=== PATIENT | male | born 1975 | race Caucasian/White ===

== ENCOUNTER 2018-03-08 11:42 | Emergency (ER) | payer OTHER ==
[2018-03-08] MEDS: ONDANSETRON 4 MG INJ IV (13:11)
[2018-03-08] MEDS: HYDROmorphONE 1 MG/ML SYG IV (13:11)
[2018-03-08] MEDS: SOD CHLORIDE 0.9% 1,000 ML IV (13:11)
[2018-03-08 13:20] LABS: ADD MAN DIFF? NO
[2018-03-08 13:23] LABS: BASOPHILS % 0.2 % (0.0-2.0); EOSINOPHILS # 0.3 10^3/ul (0.0-0.5); EOSINOPHILS % 2.7 % (0.0-7.0); HEMATOCRIT 34.9 % (42.0-52.0); HEMOGLOBIN 10.3 g/dl (14.0-18.0); LYMPHOCYTES # 2.4 10^3/ul (0.8-2.9); LYMPHOCYTES % 23.1 % (15.0-51.0); MEAN CORPUSCULAR HEMOGLOBIN 19.3 pg (29.0-33.0); MEAN CORPUSCULAR HGB CONC 29.5 g/dl (32.0-37.0); MEAN CORPUSCULAR VOLUME 65.4 fl (82.0-101.0); MEAN PLATELET VOLUME 9.1 fl (7.4-10.4); MONOCYTE # 0.6 10^3/ul (0.3-0.9); MONOCYTES % 5.9 % (0.0-11.0); NEUTROPHILS % 67.8 % (39.0-77.0); PLATELET COUNT 423 10^3/UL (140-415); RED BLOOD COUNT 5.34 10^6/ul (4.70-6.10); RED CELL DISTRIBUTION WIDTH 21.2 % (11.5-14.5)
[2018-03-08 13:23] LABS: WHITE BLOOD COUNT 10.4 10^3/ul (4.8-10.8)
[2018-03-08 13:27] LABS: ADD UMIC YES; UR ASCORBIC ACID NEGATIVE (NEGATIVE); UR BACTERIA FEW /HPF (NONE SEEN); UR BILIRUBIN (Dip) NEGATIVE (NEGATIVE); UR BLOOD (Dip) NEGATIVE (NEGATIVE); UR CLARITY CLOUDY (CLEAR); UR COLOR YELLOW (YELLOW); UR GLUCOSE (Dip) NEGATIVE (NEGATIVE); UR KETONES (Dip) NEGATIVE (NEGATIVE); UR LEUKOCYTE ESTERASE (Dip) 3+ Leu/ul (NEGATIVE); UR NITRITE (Dip) NEGATIVE (NEGATIVE); UR RBC 9 /HPF (0-5); UR SPECIFIC GRAVITY (Dip) 1.014 (1.003-1.030); UR TOTAL PROTEIN (Dip) NEGATIVE (NEGATIVE); UR UROBILINOGEN (Dip) NEGATIVE (NEGATIVE); UR WBC > 182 /HPF (0-5)
[2018-03-08 13:56] LABS: ANION GAP 16 (8-16); BLOOD UREA NITROGEN 11 mg/dl (7-20); CALCIUM 9.2 mg/dl (8.4-10.2); CARBON DIOXIDE 26 mmol/L (21-31); CHLORIDE 100 mmol/L (97-110); CREATININE 0.77 mg/dl (0.61-1.24); GLUCOSE 149 mg/dl (70-220); POTASSIUM 3.8 mmol/L (3.5-5.1); SODIUM 138 mmol/L (135-144)
[2018-03-08] MEDS: SOD CHLORIDE 0.9% 100 ML (14:53)
[2018-03-08] MEDS: IOHEXOL 300MG/ML 150 ML BTL (14:53)
[2018-03-08] MEDS: CEFTRIAXONE 1 GM/50 ML (PMX) 50 ML IVPB (16:27)
== END 2018-03-08 17:18 | disposition home or self-care (01) ==
LOC: E/R 11:42
DX: N12 Tubulo-interstitial nephritis, not specified as acute or chronic (principal)
CPT/HCPCS: 36415; 74177; 80048; 81001; 82962; 85025; 96374; 96375; 99285-25

== ENCOUNTER 2018-07-18 09:54 | Inpatient (IN) | payer OTHER ==
[2018-07-18] MEDS: HYDROmorphONE 1 MG/ML SYG IV (10:52)
[2018-07-18 10:53] LABS: ADD MAN DIFF? NO
[2018-07-18 10:55] LABS: BASOPHILS % 0.1 % (0.0-2.0); EOSINOPHILS # 0.3 10^3/ul (0.0-0.5); EOSINOPHILS % 2.6 % (0.0-7.0); HEMATOCRIT 41.9 % (42.0-52.0); HEMOGLOBIN 12.7 g/dl (14.0-18.0); LYMPHOCYTES % 9.1 % (15.0-51.0); MEAN CORPUSCULAR HEMOGLOBIN 20.6 pg (29.0-33.0); MEAN CORPUSCULAR HGB CONC 30.3 g/dl (32.0-37.0); MEAN CORPUSCULAR VOLUME 67.8 fl (82.0-101.0); MONOCYTE # 0.4 10^3/ul (0.3-0.9); MONOCYTES % 4.1 % (0.0-11.0); NEUTROPHIL # 8.9 10^3/ul (1.6-7.5); NEUTROPHILS % 83.4 % (39.0-77.0); PLATELET COUNT 314 10^3/UL (140-415); RED BLOOD COUNT 6.18 10^6/ul (4.70-6.10); RED CELL DISTRIBUTION WIDTH 19.9 % (11.5-14.5)
[2018-07-18 10:55] LABS: WHITE BLOOD COUNT 10.7 10^3/ul (4.8-10.8)
[2018-07-18] MEDS: ALBUTEROL 0.5% (NEB) 2.5 MG/0.5 ML AMP INH (10:56)
[2018-07-18] MEDS: IPRATROPIUM (NEB) 0.5 MG/2.5 ML AMP INH (10:56)
[2018-07-18 11:11] LABS: ALANINE AMINOTRANSFERASE 44 IU/L (13-69); ALBUMIN 3.8 g/dl (3.3-4.9); ALBUMIN/GLOBULIN RATIO 0.84; ALKALINE PHOSPHATASE 188 IU/L (42-121); ANION GAP 8 (5-13); ASPARTATE AMINO TRANSFERASE 57 IU/L (15-46); BILIRUBIN,INDIRECT 0.4 mg/dl (0-1.1); BILIRUBIN,TOTAL 0.4 mg/dl (0.2-1.3); BLOOD UREA NITROGEN 18 mg/dl (7-20); CALCIUM 8.6 mg/dl (8.4-10.2); CARBON DIOXIDE 28 mmol/L (21-31); CHLORIDE 103 mmol/L (97-110); CREATININE 0.58 mg/dl (0.61-1.24); Estimated GFR > 60 mL/min (>60); GLUCOSE 127 mg/dl (70-220); POTASSIUM 4.5 mmol/L (3.5-5.1); SODIUM 139 mmol/L (135-144); TOTAL PROTEIN 8.3 g/dl (6.1-8.1)
[2018-07-18 11:20] LABS: AADO2 Arterial 124.7 mmHg (7.0-24.0); Allen Test ACCEPTAB; Arterial Base Excess 3.5 mmol/L (-3.0-3); Arterial Blood Gas Oxygen Sat 92.7 mmHG (95.0-98.0); Arterial COHb 1.2 % (0.0-3.0); Arterial Fraction of Oxyhgb 91.4 % (93.0-99.0); Arterial HCO3 27.7 mmol/L (22.0-26.0); Arterial MetHb 0.2 % (0.0-1.5); Arterial pCO2 40.6 mmhg (35-45); MODE NASAL CANNULA; Site Right Radial
[2018-07-18 11:23] LABS: B-TYPE NATRIURETIC PEPTIDE 513 PG/ML (0-125); TROPONIN-I < 0.012 ng/ml (0.000-0.120)
[2018-07-18] MEDS: FENTAnyl 50 MCG/ML VIAL IV (12:19)
[2018-07-18] MEDS ORDERED: ONDANSETRON 4 MG INJ IV ×2 (13:00→19:00)
[2018-07-18] MEDS ORDERED: ACETAMINOPHEN 325 MG TAB PO ×2 (13:00→19:00)
[2018-07-18] MEDS: METHYLPREDNISOLONE 125 MG INJ IV (13:05)
[2018-07-18] MEDS: traMADol 50 MG TAB PO (17:57)
[2018-07-18 18:16] LABS: CREATINE KINASE 169 IU/L (23-200)
[2018-07-18 18:31] LABS: CK INDEX 1.2; CK-MB 2.02 ng/ml (0.0-2.4); TROPONIN-I < 0.012 ng/ml (0.000-0.120)
[2018-07-18] MEDS ORDERED: ALBUTEROL/IPRATROPIUM (NEB) 3 ML AMP HHN (19:00)
[2018-07-18] MEDS ORDERED: DOCUSATE SODIUM 100 MG CAP PO (19:00)
[2018-07-18] MEDS ORDERED: MAGNESIUM HYDROXIDE 30ML CUP PO (19:00)
[2018-07-18] MEDS ORDERED: BISACODYL 10 MG SUPP PR (19:00)
[2018-07-18] MEDS ORDERED: NACL 0.9% 3 ML SYG IV (19:00)
[2018-07-18] MEDS: FAMOTIDINE 20 MG TAB PO (21:44)
[2018-07-18] MEDS: METHOCARBAMOL 750 MG TAB PO (21:44)
[2018-07-18] MEDS: NICOTINE (21 MG/24 HR) PATCH TRANSDERM (21:44)
[2018-07-18] MEDS: IOHEXOL 300MG/ML 150 ML BTL (22:22)
[2018-07-18] MEDS: SOD CHLORIDE 0.9% 100 ML (22:22)
[2018-07-19] MEDS: LORAZEPAM 0.5 MG TAB PO (00:13)
[2018-07-19] MEDS: METHYLPREDNISOLONE 125 MG INJ IV ×2 (00:15→05:48)
[2018-07-19 06:13] LABS: ADD MAN DIFF? NO
[2018-07-19 06:18] LABS: ABNORMAL IP MESSAGE 1; BASOPHILS % 0.2 % (0.0-2.0); HEMATOCRIT 44.9 % (42.0-52.0); HEMOGLOBIN 13.2 g/dl (14.0-18.0); LYMPHOCYTES # 0.6 10^3/ul (0.8-2.9); LYMPHOCYTES % 4.6 % (15.0-51.0); MEAN CORPUSCULAR HEMOGLOBIN 20.3 pg (29.0-33.0); MEAN CORPUSCULAR HGB CONC 29.4 g/dl (32.0-37.0); MEAN CORPUSCULAR VOLUME 69.2 fl (82.0-101.0); MEAN PLATELET VOLUME 9.3 fl (7.4-10.4); MONOCYTE # 0.2 10^3/ul (0.3-0.9); MONOCYTES % 1.5 % (0.0-11.0); NEUTROPHILS % 93.2 % (39.0-77.0); PLATELET COUNT 332 10^3/UL (140-415); POSITIVE DIFF @See below; RED BLOOD COUNT 6.49 10^6/ul (4.70-6.10); RED CELL DISTRIBUTION WIDTH 19.5 % (11.5-14.5)
[2018-07-19 06:18] LABS: WHITE BLOOD COUNT 12.9 10^3/ul (4.8-10.8)
[2018-07-19 07:16] LABS: ALANINE AMINOTRANSFERASE 24 IU/L (13-69); ALBUMIN/GLOBULIN RATIO 0.85; ALKALINE PHOSPHATASE 190 IU/L (42-121); ANION GAP 14 (5-13); ASPARTATE AMINO TRANSFERASE 35 IU/L (15-46); BILIRUBIN,INDIRECT 0.2 mg/dl (0-1.1); BILIRUBIN,TOTAL 0.2 mg/dl (0.2-1.3); BLOOD UREA NITROGEN 15 mg/dl (7-20); CALCIUM 9.3 mg/dl (8.4-10.2); CARBON DIOXIDE 25 mmol/L (21-31); CHLORIDE 103 mmol/L (97-110); CREATININE 0.59 mg/dl (0.61-1.24); Estimated GFR > 60 mL/min (>60); GLUCOSE 187 mg/dl (70-220); MAGNESIUM 2.1 mg/dl (1.7-2.5); POTASSIUM 4.8 mmol/L (3.5-5.1); SODIUM 142 mmol/L (135-144); TOTAL PROTEIN 8.7 g/dl (6.1-8.1)
[2018-07-19] MEDS: METHADONE 10 MG TAB PO ×2 (08:58→10:57)
[2018-07-19] MEDS: NICOTINE (21 MG/24 HR) PATCH TRANSDERM (09:00)
[2018-07-19] MEDS: FAMOTIDINE 20 MG TAB PO (09:00)
[2018-07-19] MEDS: AZITHROMYCIN 250 MG TAB PO (09:01)
[2018-07-20] MEDS ORDERED: AZITHROMYCIN 250 MG TAB PO (09:00)
== END 2018-07-19 11:35 | disposition home or self-care (01) | DRG 189 ==
LOC: E/R 09:54 → TEL 12:40
DX: J96.01 Acute respiratory failure with hypoxia (principal); C77.2 Secondary and unspecified malignant neoplasm of intra-abdominal lymph nodes; Z72.0 Tobacco use; Z79.891 Long term (current) use of opiate analgesic; G89.4 Chronic pain syndrome; F41.9 Anxiety disorder, unspecified; F43.10 Post-traumatic stress disorder, unspecified; R59.1 Generalized enlarged lymph nodes
CPT/HCPCS: 36415; 36600; 71045; 71260; 80053; 82550; 82553; 82803; 83735; 83880; 84484; 85025; 93005; 94644; 96374; 96375; 99291-25

== ENCOUNTER 2018-07-30 09:42 | Emergency (ER) | payer OTHER ==
[2018-07-30] MEDS: METHADONE 10 MG TAB PO (10:26)
== END 2018-07-30 10:36 | disposition home or self-care (01) ==
LOC: E/R 09:42
DX: G89.4 Chronic pain syndrome (principal); Z87.891 Personal history of nicotine dependence; Z85.028 Personal history of other malignant neoplasm of stomach
CPT/HCPCS: 99283; Z7502